=== PATIENT | female | born 1975 | race Two or more races ===

== ENCOUNTER 2020-02-23 20:42 | Emergency (ER) | payer SELFPAY ==
[~2020-02-23] VITALS: Ht 162.6 cm; Wt 86.2 kg
[2020-02-23 23:50] VITALS: BP 149/83
[2020-02-24] MEDS ORDERED: TETRACAINE HCL 0.5% OPTH(EYE) SOLN 4ML LEFTEYE ONE
[2020-02-24] MEDS ORDERED: FLUORESCEIN SOD 1 MG TEST STRIP LEFTEYE ONE
== END 2020-02-24 01:07 | disposition home or self-care (01) ==
LOC: ER 20:45
DX: H10.32 Unspecified acute conjunctivitis, left eye (principal); I10 Essential (primary) hypertension